=== PATIENT | female | born 1975 | race Caucasian/White ===

== ENCOUNTER 2018-09-07 06:05 | Day surgery (SDC) ==
[2018-09-07] MEDS: TETRACAINE 0.5% UNIT-DOSE OP PRN ×2 (06:20→06:55)
[2018-09-07] MEDS: CYCLOGYL 2% OPTH OP PRN ×3 (06:20→06:30)
[2018-09-07] MEDS: BETADINE OPTH PREP OP PRN ×2 (06:20→06:55)
[2018-09-07] MEDS ORDERED: BRIMONIDINE TARTRATE 0.2% OPTH SOL OP PRN (06:32)
[2018-09-07] MEDS ORDERED: DEX-MOXI-KETOR OPTH INJ 1/0.5/0.4 MG/ML IO ONE (06:32)
[2018-09-07] MEDS ORDERED: LIDOCAINE 1% 20 ML MDV ID STA (06:32)
[2018-09-07] MEDS ORDERED: BSS WITH EPINEPHRINE OP ONE (06:32)
[2018-09-07] MEDS ORDERED: LIDOCAINE 1%/PHENYLEPHRINE 1.5% BSS (SURGERY) INTRAOCULA ONE (06:32)
[2018-09-07] MEDS ORDERED: ZOFRAN 4 MG/2 ML IVP ONE (06:32)
[2018-09-07] MEDS ORDERED: SUBLIMAZE ONE (07:05)
[2018-09-07] MEDS ORDERED: DIPRIVAN 20 ML VIAL IVP ONE (07:05)
[2018-09-07] MEDS ORDERED: VERSED ONE (07:05)
[2018-09-07] MEDS ORDERED: ZOFRAN 4 MG/2 ML ONE (07:05)
[2018-09-07 07:38] LABS: URINE PREGNANCY TEST NEGATIVE (NEGATIVE)
[2018-09-10 11:36] VITALS: TEMP 97.8
[2018-09-10 11:38] VITALS: BP 177/68
== END 2018-09-07 08:25 | disposition home or self-care (01) ==
LOC: SURG 06:05
PROVIDERS: ATTEND Ophthalmology
DX: H25.811 Combined forms of age-related cataract, right eye (principal)
CPT/HCPCS: 81025